=== PATIENT | female | born 1990 | race Caucasian/White ===

== ENCOUNTER 2017-03-29 01:45 | Emergency (ER) | payer BC ==
[~2017-03-29] VITALS: Ht 162.6 cm; Wt 70.0 kg
[~2017-03-29 01:45] MED LIST: VIST50CA PO
[2017-03-29 01:48] VITALS: BP 131/85; PULSE 133; RESP 20; TEMP 102.1; O2SAT 100
[2017-03-29] MEDS ORDERED: ZOLO25TA PO (01:56)
--- NOTE | 2017-03-29 02:57 | PD ---
HPI Chief Complaint: Allergic/Adverse Reaction Time Seen by Provider: 02:52 Travel History International Travel<30 days: No Contact w/Intl Traveler<30days: No Traveled to known affect area: No History of Present Illness HPI 26-year-old female was one day of fever and sore throat with facial pressure and congestion presents to the emergency department for temperature elevation and not feeling well. Patient states around 5 PM she took 400 mg of ibuprofen but is taking no other antipyretic medications. Patient denies any chronic medical conditions. Patient did not have the flu vaccine. Patient has had myalgias and arthralgias. Patient has had nonproductive cough but vomited one time and noted streaks of blood. Patient denies . Patient denies other concerns or complaints. No dysuria frequency urgency or diarrhea. Sore throat pain radiates to her right ear. Patient is unable to identify exacerbating or alleviating factors. Patient denies history of diabetes. PFSH Past Medical History Narrative Medical Anxiety depression ear surgery no tobacco use nursing notes reviewed Anxiety: Yes Depression: Yes Diminished Hearing: No Immunizations Current: Yes Influenza Vaccination: No ?: Not LMP: Jan 2017 : 0 Para: 0 Miscarriage: 0 : 0 Past Surgical History Ear Surgery: Yes Social History Alcohol Use: No Tobacco Use: No Substance Use: No Allergies-Medications (Allergen,Severity, Reaction): Coded Allergies: No Known Allergies (Unverified Adverse Reaction, Unknown, 03/29/17) Reported Meds & Prescriptions Reported Meds & Active Scripts Active Zofran Odt (Ondansetron Odt) 4 Mg Tab 4 Mg SL Q6HR PRN Augmentin (Amoxicillin-Clavulanate) 875-125 Mg Tab 1 Tab PO BID 10 Days Reported Zoloft (Sertraline HCl) 25 Mg Tab 25 Mg PO DAILY Review of Systems Except as stated in HPI: all other systems reviewed are Neg General / Constitutional: Positive: Fever, Chills HENT: Positive: Sore Throat, Congestion, No: Neck Pain Cardiovascular: No: Chest Pain or Discomfort Respiratory: Positive: Cough Gastrointestinal: Positive: Nausea, Vomiting (x1) Genitourinary: No: Dysuria, Flank Pain Musculoskeletal: Positive: Myalgias, Arthralgias Skin: No Rash Neurologic: No: Weakness Psychiatric: No: Anxiety Hematologic/Lymphatic: No: Lymph Node Enlargement Physical Exam Narrative GENERAL: Well-developed well-nourished female in no acute distress no respiratory distress SKIN: Warm and dry. HEAD: Normocephalic. EYES: No scleral icterus. No injection or drainage. ENT: Mucous members moist airway is patent posterior pharynx is erythematous without edema or exudative change NECK: Supple, trachea midline. No JVD or lymphadenopathy. CARDIOVASCULAR: Increased Regular rate and rhythm without murmurs, gallops, or rubs. RESPIRATORY: Breath sounds equal bilaterally. No accessory muscle use. GASTROINTESTINAL: Abdomen soft, non-tender, nondistended. MUSCULOSKELETAL: No cyanosis, or edema. BACK: Nontender without obvious deformity. No CVA tenderness. Data Data Last Documented VS Vital Signs Date Time Temp Pulse Resp B/P (MAP) Pulse Ox O2 Delivery O2 Flow Rate FiO2 03/29/17 05:20 03/29/17 05:19 98.6 03/29/17 02:01 Room Air 03/29/17 01:48 133 20 100 Orders Orders Basic Metabolic Panel (Bmp) (03/29/17 02:52) Complete Blood Count With Diff (03/29/17 02:52) Monoscreen (03/29/17 02:52) Blood Culture (03/29/17 02:52) Group A Rapid Strep Screen (03/29/17 02:52) Iv Access Insert/Monitor (03/29/17 02:52) Acetaminophen (Tylenol) (03/29/17 03:00) Ibuprofen (Motrin) (03/29/17 03:00) Sodium Chloride 0.9% Flush (Ns Flush) (03/29/17 03:00) Sodium Chlor 0.9% 1000 Ml Inj (Ns 1000 M (03/29/17 03:00) Lactic Acid (03/29/17 02:52) Influenzae A/B Antigen (03/29/17 02:52) Ceftriaxone Inj (Rocephin Inj) (03/29/17 03:00) Ed Urine Pregnancytest Poc (03/29/17 04:54) Ed Discharge Order (03/29/17 05:11) Labs Laboratory Tests Test 03/29/17 02:40 White Blood Count 16.0 TH/MM3 Red Blood Count 4.52 MIL/MM3 Hemoglobin 12.3 GM/DL Hematocrit 37.1 % Mean Corpuscular Volume 82.1 FL Mean Corpuscular Hemoglobin 27.1 PG Mean Corpuscular Hemoglobin Concent 33.0 % Red Cell Distribution Width 15.2 % Platelet Count 267 TH/MM3 Mean Platelet Volume 9.5 FL Neutrophils (%) (Auto) 85.7 % Lymphocytes (%) (Auto) 7.0 % Monocytes (%) (Auto) 6.4 % Eosinophils (%) (Auto) 0.5 % Basophils (%) (Auto) 0.4 % Neutrophils # (Auto) 13.7 TH/MM3 Lymphocytes # (Auto) 1.1 TH/MM3 Monocytes # (Auto) 1.0 TH/MM3 Eosinophils # (Auto) 0.1 TH/MM3 Basophils # (Auto) 0.1 TH/MM3 CBC Comment DIFF FINAL Differential Comment Blood Urea Nitrogen 10 MG/DL Creatinine 0.76 MG/DL Random Glucose 95 MG/DL Calcium Level 9.3 MG/DL Sodium Level 134 MEQ/L Potassium Level 3.5 MEQ/L Chloride Level 101 MEQ/L Carbon Dioxide Level 22.9 MEQ/L Anion Gap 10 MEQ/L Estimat Glomerular Filtration Rate 91 ML/MIN Lactic Acid Level 0.7 mmol/L Monoscreen NEG MDM Medical Decision Making Medical Screen Exam Complete: Yes Emergency Medical Condition: Yes Medical Record Reviewed: Yes Interpretation(s) CBC & BMP Diagram 03/29/17 02:40 Calcium Level 9.3 Vital Signs Date Time Temp Pulse Resp B/P (MAP) Pulse Ox O2 Delivery O2 Flow Rate FiO2 03/29/17 02:01 Room Air 03/29/17 01:48 102.1 133 20 131/85 (100) 100 Room Air Rapid strep: Positive Influenza A/B antigen: Negative [place] spot: Negative [id number] hCG: negative Lactic acid: 0.7, not elevated Differential Diagnosis viral syndrome, strep pharyngitis, influenza, mononucleosis, bronchitis, pneumonia, sinusitis, dehydration, electronic disturbance, sepsis Narrative Course IV access obtained specimens collected and sent for resulting patient given liter normal saline bolus antipyretics and Rocephin 2 g IV piggyback Sepsis Criteria SIRS Criteria (2 or more): Temp > 100.9 or < 96.8, Heart rate over 90, WBC > 79547, < 4000 or > 10% bands Sepsis Criteria (SIRS+source): Infect source susp/known (throat pharynx) Diagnosis Primary Impression: Strep throat Referrals: Primary Care Physician Patient Instructions: General Instructions Departure Forms: Tests/Procedures, Work Release Special Instructions: no work x 3 days Additional Instructions: Complete course of antibiotic as prescribed Take medication as needed for nausea and/or vomiting Monitor temperature every 4 hours take acetaminophen/Tylenol every 4 hours for fever 100.4F or greater Take ibuprofen 6 mg may be taken as often as every 6 hours or as needed 800 mg may be taken as often as every 8 hours for fever 100.4F or greater or for pain associated with inflammation avoid prolonged use of high-dose ibuprofen Increase fluid hydration No work 3 days Follow-up with your primary care provider Return to the emergency department for any concerns or change condition Med/Other Pt SpecificInfo: Prescription(s) given Scripts Ondansetron Odt (Zofran Odt) 4 Mg Tab 4 MG SL Q6HR Y for Nausea/Vomiting, #10 TAB 0 Refills Prov: Kajal Marsh MD 03/29/17 Amoxicillin-Clavulanate (Augmentin) 875-125 Mg Tab 1 TAB PO BID for Infection for 10 Days, #20 TAB 0 Refills Prov: Kajal Marsh MD 03/29/17 Disposition: 01 DISCHARGE HOME Condition: Stable Kajal Marsh MD Mar 29, 2017 02:57
[2017-03-29] MEDS ORDERED: ACETAMINOPHEN 325 MG TAB PO ONE (03:00)
[2017-03-29] MEDS ORDERED: IBUPROFEN 600 MG TAB PO ONE (03:00)
[2017-03-29] MEDS ORDERED: cefTRIAXone INJ 2,000 MG in SODIUM CHLORIDE 0.9% INJ 100 ML IV ONE (03:00)
[2017-03-29] MEDS ORDERED: SODIUM CHLOR 0.9% 1000 ML INJ 1,000 ML IV ONE (03:00)
[2017-03-29] MEDS ORDERED: SODIUM CHLORIDE 0.9% FLUSH 10 ML FLUSH IVF PRN (03:00)
[2017-03-29 03:50] LABS: AUTOMATED NEUTROPHIL # 13.7 TH/MM3 (1.8-7.7); BASOPHIL # 0.1 TH/MM3 (0-0.2); BASOPHIL % 0.4 % (0.0-2.0); EOSINOPHIL # 0.1 TH/MM3 (0-0.4); EOSINOPHIL % 0.5 % (0.0-4.0); HEMATOCRIT 37.1 % (35.0-46.0); HEMO FLAGS DIFF FINAL; LYMPHOCYTE # 1.1 TH/MM3 (1.0-4.8); MEAN CELL VOLUME 82.1 FL (80.0-100.0); MEAN CORPUSCULAR HEMOGLOBIN 27.1 PG (27.0-34.0); MONO % 6.4 % (0.0-8.0); NEUT % 85.7 % (16.0-70.0); PLATELET COUNT 267 TH/MM3 (150-450); RED BLOOD COUNT 4.52 MIL/MM3 (4.00-5.30); RED CELL DISTRIBUTION WIDTH 15.2 % (11.6-17.2)
[2017-03-29 04:03] LABS: BICARBONATE 22.9 MEQ/L (21.0-32.0); POTASSIUM 3.5 MEQ/L (3.5-5.1)
[2017-03-29] MEDS ORDERED: AUGM875T3 PO (04:51)
[2017-03-29] MEDS ORDERED: ZOFR4TAB3 SL (04:51)
[2017-03-29 05:19] VITALS: TEMP 98.6
== END 2017-03-29 05:20 | disposition home or self-care (01) ==
LOC: NEPC 01:45
DX: J02.0 Streptococcal pharyngitis (principal); B95.0 Streptococcus, group A, as the cause of diseases classified elsewhere
CPT/HCPCS: 80048; 83605; 84703; 85025; 86308; 87040; 87804; 87880; 96374; 99284; J0696; J7030